=== PATIENT | female | born 1975 | race Caucasian/White ===

== ENCOUNTER 2023-05-18 01:18 | Day surgery (SDC) | payer BC, SELFPAY ==
[2023-05-09 10:15] VITALS: BMI 28.3
[2023-05-18 07:15] VITALS: BP 132/74; PULSE 91; RESP 18; TEMP 36.2; O2SAT 98; BMI 28.7
[2023-05-18] MEDS: LACTATED RINGERS 1,000 ML 150 ML IV CONT (07:31)
--- NOTE | 2023-05-18 08:05 | P.PNAN_ITS ---
Anes - Initial Pre Proc Eval Procedure: Operation Date: 05/18/23 08:30 Proposed Procedures p Screening Colonoscopy - Reynaldo Callahan MD Date/Time: 05/18/23 08:05 Surgeon: Reynaldo Callahan MD Pre Op Diagnosis: neoplasm screening Patient Data Age: 48 Gender: F Height: 1.63 m Weight: 75.9 kg Last Vital Signs Temp 97.1 F L 05/18/23 07:15 Pulse 91 05/18/23 07:15 Resp 18 05/18/23 07:15 BP 132/74 05/18/23 07:15 Pulse Ox 98 05/18/23 07:15 O2 Del Method Room Air 05/18/23 07:15 Allergies Allergy/AdvReac Type Severity Reaction Status Date / Time propylene glycol Allergy Unknown Verified 05/18/23 07:22 neoprene Allergy Unknown Uncoded 05/18/23 07:22 Home Medications Medication Instructions Recorded Confirmed Type dupilumab 300 mg/2 mL subcutaneous See Rx Instructions .Route .COMPLEX 05/09/23 05/18/23 History pen injector (Dupixent) estradiol-norethindrone acet 0.5 1 tablet PO DAILY 05/09/23 05/18/23 History mg-0.1 mg tablet Patient hx anesthesia problems: none Family hx anesthesia problems: none Results Review: All pre-operative results and documents have been reviewed as part of the pre- operative evaluation. [facility] Social History Social History Smoking status: Never smoker Alcohol intake: current Drinks per week: 7 Alcohol use details: Socially Substance use type: does not use Anes - Eval Final PreProcedure Day of Procedure 05/18/23 08:05 Patient weight: overweight Heart: regular rate and rhythm Lungs: clear to auscultation Airway: Mallampati scale class II Neurological: alert and oriented Last oral intake: >/= 8 hours ASA classification: II Emergent: no Anesthetic plan: proceed Anesthesia type and monitoring: general GIVS and standard monitoring Results Review: All pre-operative results and documents have been reviewed as part of the pre- operative evaluation. Informed Consent: The patient's anesthetic plan and its attendant risks and benefits were discussed with the patient/family/POA. Questions were solicited and answers provided to the satisfaction of the patient/family/POA.
--- NOTE | 2023-05-18 08:09 | P.HP_ITS ---
History of Present Illness History of Present Illness Consent: Risks, benefits, and alternatives have been discussed and questions answered. Patient agrees to proceed with procedure. Chief complaint: neoplasm screening Narrative: Almita Ozuna is a 48 year old female here for first screening colonoscopy Review of Systems Constitutional: Constitutional: Denies headache(s) and Denies weakness Eyes: Eyes: Denies blurry vision ENT: Reports Normal hearing present, Denies headache(s) and Denies neck pain Cardiovascular: Cardiovascular: Denies chest pain and Denies dyspnea Respiratory: Respiratory: Denies dyspnea Gastrointestinal: Gastrointestinal: Reports no additional gastrointestinal complaints Genitourinary: Genitourinary: Denies dysuria Musculoskeletal: Musculoskeletal: Denies neck pain Integumentary/Breasts: Skin/Breast: Denies dry skin Neurologic: Reports Normal hearing present, Denies headache(s) and Denies weakness Psychiatric: Psychiatric: Denies anxiety Endocrine: Endocrine: Denies change in body appearance Hematologic/Lymphatic: Hematologic/Lymphatic: Denies easy bleeding Allergic/Immunologic: Allergic/Immunologic: Denies urticaria [facility] Past Medical History Medical History (Updated 05/18/23 @ 08:10 by Reynaldo Callahan MD) Colon cancer screening Social History Social History Smoking status: Never smoker Alcohol intake: current Drinks per week: 7 Alcohol use details: Socially Substance use type: does not use Meds Home Medications and Allergies Home Medications Medication Instructions Recorded Confirmed Type dupilumab 300 mg/2 mL subcutaneous See Rx Instructions .Route .COMPLEX 05/09/23 05/18/23 History pen injector (Dupixent) estradiol-norethindrone acet 0.5 1 tablet PO DAILY 05/09/23 05/18/23 History mg-0.1 mg tablet Allergies Allergy/AdvReac Type Severity Reaction Status Date / Time propylene glycol Allergy Unknown Verified 05/18/23 07:22 neoprene Allergy Unknown Uncoded 05/18/23 07:22 Vital Signs Vital Signs - 24 hr 05/18/23 07:15 Temperature 97.1 F L Pulse Rate 91 Respiratory Rate 18 Blood Pressure 132/74 Pulse Oximetry 98 Oxygen Delivery Room Air Exam Const: General: comfortable and no acute distress HENMT: Face/Nose/Sinus: Normal nares present Eyes: General: appearance normal, both eyes and all related structures Neck: Neck: no JVD Resp: Auscultation: clear to auscultation bilaterally Cardio: Rate: regular rate Rhythm: regular rhythm GI: Inspection: non-distended GI Palp: Yes Soft to palpation Skin: General skin exam: normal color Neuro: General: gait normal Speech: normal speech Extrem: General: normal to inspection Psych: Mental Status: mental status grossly normal Assessment and Plan Assessment and plan (1) Colon cancer screening: Code(s): Z12.11 - Encounter for screening for malignant neoplasm of colon Status: Acute Assessment and Plan: colonoscopy
[2023-05-18 08:31] VITALS: BP 116/77; PULSE 81; RESP 17; O2SAT 96
[2023-05-18 08:41] VITALS: BP 132/89; PULSE 71; RESP 27; O2SAT 100
[2023-05-18 08:51] VITALS: BP 132/87; PULSE 70; RESP 19; O2SAT 100
== END 2023-05-18 09:00 | disposition home or self-care (01) ==
PROVIDERS: PCP Internal Medicine; Visit Provider Internal Medicine Gastroenterology
PROC: 0DJD8ZZ Inspection of Lower Intestinal Tract, Via Natural or Artificial Opening Endoscopic (ICD-10-PCS; CPT 45378; principal; 2023-05-18 08:30)
DX: Z12.11 Encounter for screening for malignant neoplasm of colon (principal); K64.8 Other hemorrhoids; Z79.85 Long-term (current) use of injectable non-insulin antidiabetic drugs
CPT/HCPCS: 45378; J2704; J7120

== ENCOUNTER 2024-06-20 10:19 | Outpatient (CLI) | payer BC, SELFPAY ==
--- NOTE | ~2024-06-20 | MM_ITS ---
EXAMINATION: MM screening alyssa BI w yelitza HISTORY: Screening mammogram TECHNIQUE: Craniocaudal and mediolateral oblique 3-D tomosynthesis images were obtained and synthetic 2-D images were generated. CAD analysis was submitted and interpreted. COMPARISON: No prior mammogram is available for comparison at this institution. BREAST PARENCHYMAL COMPOSITION:Not Dense. There are scattered areas of fibroglandular density. FINDINGS: No suspicious mass, calcification, or architectural distortion are identified in either francisca ast to suggest malignancy. There has been no suspicious interval change. IMPRESSION: No mammographic evidence of malignancy. Recommend routine screening mammography in one year. BI-RADS Category 1: Negative Reviewed, dictated and finalized at location . [facility] GU[facility]
== END 2024-06-20 10:20 | disposition home or self-care (01) ==
LOC: MICIMG 10:21
PROVIDERS: PCP Advanced Practice Midwife; Visit Provider Advanced Practice Midwife
DX: Z12.31 Encounter for screening mammogram for malignant neoplasm of breast (principal)
CPT/HCPCS: 77063; 77067

== ENCOUNTER 2025-01-29 13:54 | Outpatient (CLI) | payer BC, SELFPAY ==
--- NOTE | ~2025-01-29 | US_ITS ---
EXAM: PELVIC ULTRASOUND HISTORY: R87.629 - Unspecified abnormal cytological findings in sp... COMPARISON: None. FINDINGS: UTERUS: 8.8 x 3.5 x 2.6 cm. The uterus is anteverted and anteflexed. The uterus is markedly heterogeneous and nodular with multiple foci of increased echogenicity, withou t a striated appearance. The endometrial complex measures 1.6 mm. RIGHT OVARY: The right ovary is unremarkable in echogenicity and size measuring 1.4 x 1.4 x 1.2 cm. Dopplerable flow is identified. LEFT OVARY: The left ovary is unremarkable in echogenicity and size measuring 1.6 x 1.0 x 1.0 cm Dopplerable flow is identified. No free fluid is identified within the pelvis. IMPRESSION: Heterogeneous and nodular uterus without striations to suggest adenomyosis. Bilateral adnexa are unremarkable. Reviewed, dictated and finalized at location A.
== END 2025-01-29 13:55 | disposition home or self-care (01) ==
LOC: GOSHIMG 13:55
PROVIDERS: PCP Nurse Practitioner Obstetrics & Gynecology; Visit Provider Nurse Practitioner Obstetrics & Gynecology
DX: N85.8 Other specified noninflammatory disorders of uterus (principal); R87.619 Unspecified abnormal cytological findings in specimens from cervix uteri
CPT/HCPCS: 76830; 76856